=== PATIENT | male | born 1980 | race Caucasian/White ===

== ENCOUNTER 2020-10-26 12:59 | Emergency (ER) | payer BC ==
[2020-10-26 16:46] LABS: HEMOGLOBIN 17.7 gm/dl (14.0-17.5); RED BLOOD COUNT 5.52 M/UL (4.20-5.50); WHITE BLOOD COUNT 12.9 K/UL (4.5-11.0)
[2020-10-26 17:03] LABS: BUN/CREATININE RATIO 15 (0-10)
== END 2020-10-26 18:40 | disposition home or self-care (01) ==
LOC: ER1 12:59
PROVIDERS: Emergency Medicine
DX: R10.9 Unspecified abdominal pain (principal); N50.811 Right testicular pain; F17.200 Nicotine dependence, unspecified, uncomplicated; Z87.19 Personal history of other diseases of the digestive system
CPT/HCPCS: 76870; 80053; 81001; 83690; 85025; 96374; 96375; 99284; J2270; J2405